=== PATIENT | male | born 1965 | race Caucasian/White ===

== ENCOUNTER 2022-02-15 08:39 | Day surgery (SDC) | payer BC ==
[2022-02-15] MEDS ORDERED: Propofol 200 MG/20 ML SDV ONE (09:24)
[2022-02-15] MEDS ORDERED: Midazolam 1 MG/ML 2 ML SDV ONE (09:24)
[2022-02-15] MEDS ORDERED: fentaNYL 100 MCG/2 ML SDV ONE (09:24)
[2022-02-15] MEDS ORDERED: Lactated Ringers 1,000 ML IV SCH (09:30)
== END 2022-02-15 11:00 | disposition home or self-care (01) ==
LOC: JP.SDS 08:39
PROVIDERS: ATTEND Family Medicine
DX: Z12.11 Encounter for screening for malignant neoplasm of colon (principal); I10 Essential (primary) hypertension; N52.9 Male erectile dysfunction, unspecified; E66.9 Obesity, unspecified; Z68.36 Body mass index [BMI] 36.0-36.9, adult
CPT/HCPCS: 45378; J2250; J2704; J3010; J7120